=== PATIENT | male | born 1995 | race Hispanic/Latino ===

== ENCOUNTER 2019-05-18 18:48 | Emergency (ER) | payer SELFPAY ==
--- NOTE | 2019-05-18 19:37 | CT ---
EXAM: CT Facial Bones WO Con PROVIDED CLINICAL HISTORY: Pain status post injury COMPARISON: None FINDINGS: Mildly comminuted, not displaced orbital floor fracture on the right. 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 No additional fracture is evident. The globes appear normal. Mucosal thickening is seen involving the left maxillary sinus and ethmoid air cells as well as a portion of t he left frontal sinus. IMPRESSION: Nondisplaced right orbital floor fracture.
--- NOTE | 2019-05-18 21:12 | CT ---
EXAM: CT Facial Bones WO Con PROVIDED CLINICAL HISTORY: Trauma COMPARISON: Exam earlier same date FINDINGS: Significant interval change with respect to the prior examination is not apparent. IMPRESSION: As above.
[2019-05-18] MEDS ORDERED: Adacel (T-DAP) 0.5 ML SYRINGE ONE (21:16)
== END 2019-05-18 19:27 | disposition home or self-care (01) ==
LOC: ERS 18:48
DX: S02.121A Fracture of orbital roof, right side, initial encounter for closed fracture (principal); S01.511A Laceration without foreign body of lip, initial encounter; W17.89XA Other fall from one level to another, initial encounter
CPT/HCPCS: 70486; 90471; 90715

== ENCOUNTER 2019-10-02 15:04 | Emergency (ER) | payer OTHER, SELFPAY ==
[2019-10-03 16:29] LABS: SARS-CoV-2 MS2 Positive; SARS-CoV-2 N Gene Negative; SARS-CoV-2 S Gene Negative; SARS-CoV-2 orf1ab Negative
== END 2019-10-02 15:59 | disposition home or self-care (01) ==
LOC: ERS 15:04
DX: R05 Cough (principal); Z20.828 Contact with and (suspected) exposure to other viral communicable diseases
CPT/HCPCS: 87635; 99283; U0003